=== PATIENT | female | born 1995 | race Two or more races ===

== ENCOUNTER 2018-09-19 15:42 | Emergency (ER) | payer MEDICAID ==
[~2018-09-19] VITALS: Ht 157.5 cm; Wt 65.8 kg
[2018-09-19 15:50] VITALS: BP 151/109
== END 2018-09-19 19:00 | disposition left against medical advice (07) ==
LOC: ER 15:56
DX: R51 Headache (principal); Z53.21 Procedure and treatment not carried out due to patient leaving prior to being seen by health care provider